=== PATIENT | male | born 1990 | race Hispanic/Latino ===

== ENCOUNTER 2023-01-27 19:13 | Emergency (ER) | payer BC ==
[2023-01-27 20:21] LABS: SARS-CoV-2 NAA Rapid Test Not Detected (NotDetected)
[2023-01-27] MEDS ORDERED: Dexamethasone 10 MG/ML VIAL ONE (20:43)
== END 2023-01-27 20:47 | disposition home or self-care (01) ==
LOC: CSHERS 19:13
DX: J20.9 Acute bronchitis, unspecified (principal); Z20.822 Contact with and (suspected) exposure to COVID-19
CPT/HCPCS: 71045; J1100